=== PATIENT | female | born 1965 | race Caucasian/White ===

== ENCOUNTER 2020-04-27 13:00 | Outpatient (REF) | payer OTHER, SELFPAY ==
[2020-04-27 13:30] LABS: COVID-19 Test Negative (Negative); IDNOW Serial# 9DD0AD1C
== END 2020-04-27 13:01 | disposition home or self-care (01) ==
LOC: HO.EMPCOV 13:00
PROVIDERS: Visit Provider Internal Medicine
DX: Z20.828 Contact with and (suspected) exposure to other viral communicable diseases (principal)
CPT/HCPCS: 87635

== ENCOUNTER 2020-06-09 14:02 | Outpatient (REF) | payer OTHER, SELFPAY ==
[2020-06-09 15:31] LABS: Alanine Aminotransferase 16 U/L (0-31); Albumin Level 4.3 g/dL (3.5-5.0); Alkaline Phosphatase 55 U/L (39-117); Anion Gap 11 (12-20); Aspartate Amino Transferase 17 U/L (5-31); Bilirubin Total 0.6 mg/dL (0.0-1.0); Blood Urea Nitrogen 20 mg/dL (9-16); Calcium 9.4 mg/dL (8.4-10.2); Carbon Dioxide 26 mmol/L (22-29); Chloride 108 mmol/L (96-108); Cholesterol 243 mg/dL; Estimated Glomerular Filt Rate > 60; Glucose Random 95 mg/dL (60-115); HDL Cholesterol 66 mg/dL; LDL Cholesterol Calculated 162 mg/dl; Potassium 4.3 mmol/L (3.3-5.1); Sodium 141 mmol/L (135-145); Total Protein 7.2 g/dL (6.5-8.0); Triglycerides 77 mg/dL
[2020-06-09 15:47] LABS: Thyroid Stimulating Hormone 1.54 uIU/mL (0.32-4.0)
== END 2020-06-09 14:03 | disposition home or self-care (01) ==
LOC: HO.LAB 14:02
PROVIDERS: PCP Hospitalist; Visit Provider Hospitalist
DX: E03.9 Hypothyroidism, unspecified (principal); E66.9 Obesity, unspecified; E05.00 Thyrotoxicosis with diffuse goiter without thyrotoxic crisis or storm
CPT/HCPCS: 36415; 80053; 80061; 84443

== ENCOUNTER 2022-01-29 07:11 | Outpatient (REF) | payer OTHER, SELFPAY ==
[2022-01-29 08:15] LABS: Cholesterol 203 mg/dL; Glucose Random 103 mg/dL (60-115); HDL Cholesterol 62 mg/dL; LDL Cholesterol Calculated 120 mg/dl; Triglycerides 106 mg/dL
[2022-01-29 08:19] LABS: Thyroid Stimulating Hormone 0.04 uIU/mL (0.32-4.0)
== END 2022-01-29 07:12 | disposition home or self-care (01) ==
LOC: HO.LAB 07:11
PROVIDERS: PCP Nurse Practitioner Family; Visit Provider Nurse Practitioner Family
DX: Z13.220 Encounter for screening for lipoid disorders (principal); Z13.1 Encounter for screening for diabetes mellitus; E03.9 Hypothyroidism, unspecified
CPT/HCPCS: 36415; 80061; 82947; 84443

== ENCOUNTER 2022-04-06 11:27 | Outpatient (REF) | payer OTHER, SELFPAY ==
[2022-04-06 13:03] LABS: Thyroid Stimulating Hormone 0.27 uIU/mL (0.32-4.0)
== END 2022-04-06 11:28 | disposition home or self-care (01) ==
LOC: HO.LAB 11:27
PROVIDERS: PCP Nurse Practitioner Family; Visit Provider Nurse Practitioner Family
DX: E03.9 Hypothyroidism, unspecified (principal)
CPT/HCPCS: 36415; 84443

== ENCOUNTER 2022-06-04 07:13 | Outpatient (REF) | payer OTHER, SELFPAY ==
[2022-06-04 08:54] LABS: Thyroid Stimulating Hormone 0.38 uIU/mL (0.32-4.0)
== END 2022-06-04 07:14 | disposition home or self-care (01) ==
LOC: HO.LAB 07:13
PROVIDERS: PCP Nurse Practitioner Family; Visit Provider Nurse Practitioner Family
DX: Z86.39 Personal history of other endocrine, nutritional and metabolic disease (principal)
CPT/HCPCS: 36415; 84443

== ENCOUNTER 2023-11-02 07:11 | Outpatient (REF) | payer OTHER, SELFPAY ==
[2023-11-02 08:10] LABS: Cholesterol 216 mg/dL (<200); HDL Cholesterol 58 mg/dL (>40); LDL Cholesterol Calculated 134 mg/dL (<100); Triglycerides 124 mg/dL (<150)
[2023-11-02 08:26] LABS: Thyroid Stimulating Hormone 0.03 uIU/mL (0.32-4.0)
== END 2023-11-02 07:12 | disposition home or self-care (01) ==
LOC: HO.LAB 07:11
PROVIDERS: PCP Nurse Practitioner Family; Visit Provider Nurse Practitioner Family
DX: Z00.00 Encounter for general adult medical examination without abnormal findings (principal); E03.9 Hypothyroidism, unspecified
CPT/HCPCS: 36415; 80061; 84443

== ENCOUNTER 2023-12-16 07:14 | Outpatient (REF) | payer OTHER, SELFPAY ==
[2023-12-16 08:48] LABS: Thyroid Stimulating Hormone 0.32 uIU/mL (0.32-4.0)
== END 2023-12-16 07:15 | disposition home or self-care (01) ==
LOC: HO.LAB 07:14
PROVIDERS: PCP Nurse Practitioner Family; Visit Provider Nurse Practitioner Family
DX: E03.9 Hypothyroidism, unspecified (principal)
CPT/HCPCS: 36415; 84443

== ENCOUNTER 2025-04-05 07:36 | Outpatient (REF) | payer OTHER, SELFPAY ==
[2025-04-05 08:38] LABS: Alanine Aminotransferase 24 U/L (0-31); Albumin Level 4.7 g/dL (3.5-5.0); Alkaline Phosphatase 72 U/L (39-117); Anion Gap 11 (12-20); Aspartate Amino Transferase 23 U/L (5-31); Blood Urea Nitrogen 13 mg/dL (9-16); Calcium 9.6 mg/dL (8.4-10.2); Carbon Dioxide 25 mmol/L (22-29); Chloride 108 mmol/L (96-108); Estimated Glomerular Filt Rate > 60; Potassium 4.1 mmol/L (3.3-5.1); Sodium 140 mmol/L (135-145); Total Protein 7.5 g/dL (6.5-8.0)
[2025-04-05 08:50] LABS: Cholesterol 218 mg/dL (<200); HDL Cholesterol 65 mg/dL (>40); Triglycerides 141 mg/dL (<150)
== END 2025-04-05 07:37 | disposition home or self-care (01) ==
LOC: HO.LAB 07:36
PROVIDERS: PCP Nurse Practitioner Family; Visit Provider Nurse Practitioner Family
DX: Z13.220 Encounter for screening for lipoid disorders (principal); Z13.228 Encounter for screening for other metabolic disorders; E03.9 Hypothyroidism, unspecified
CPT/HCPCS: 36415; 80053; 80061; 84443